=== PATIENT | male | born 1940 | race Caucasian/White ===

== ENCOUNTER 2021-03-26 20:29 | Emergency (ER) | payer MEDICARE, OTHER ==
[2021-03-26 21:47] LABS: HEMOGLOBIN 14.2 gm/dl (14.0-17.5); RED BLOOD COUNT 4.31 M/UL (4.20-5.50); WHITE BLOOD COUNT 8.3 K/UL (4.5-11.0)
[2021-03-26 22:08] LABS: BUN/CREATININE RATIO 27 (0-10)
== END 2021-03-26 23:30 | disposition home or self-care (01) ==
LOC: ER1 20:29
PROVIDERS: Emergency Medicine
DX: R20.2 Paresthesia of skin (principal); D69.6 Thrombocytopenia, unspecified; E11.9 Type 2 diabetes mellitus without complications; I48.91 Unspecified atrial fibrillation; I11.0 Hypertensive heart disease with heart failure; I50.9 Heart failure, unspecified; F17.200 Nicotine dependence, unspecified, uncomplicated; Z88.0 Allergy status to penicillin; Z88.6 Allergy status to analgesic agent
CPT/HCPCS: 70450; 72125; 80053; 85025; 93005; 99285

== ENCOUNTER 2021-03-31 16:12 | Emergency (ER) | payer MEDICARE, OTHER ==
[2021-03-31] MEDS ORDERED: MOBIC15 MG PO (19:14)
[2021-03-31] MEDS ORDERED: CATAPRES 0.1MG0.1 MG PO (19:14)
== END 2021-03-31 19:45 | disposition home or self-care (01) ==
LOC: ER1 16:12
DX: I13.0 Hypertensive heart and chronic kidney disease with heart failure and stage 1 through stage 4 chronic kidney disease, or unspecified chronic kidney disease (principal); I50.9 Heart failure, unspecified; K02.9 Dental caries, unspecified; E11.9 Type 2 diabetes mellitus without complications; I25.10 Atherosclerotic heart disease of native coronary artery without angina pectoris; F17.200 Nicotine dependence, unspecified, uncomplicated; Z79.84 Long term (current) use of oral hypoglycemic drugs; Z79.899 Other long term (current) drug therapy; Z88.0 Allergy status to penicillin; Z88.6 Allergy status to analgesic agent
CPT/HCPCS: 99284